=== PATIENT | female | born 1960 | race Caucasian/White ===

== ENCOUNTER 2018-06-20 07:52 | Day surgery (SDC) | payer OTHER ==
[~2018-06-20] VITALS: Ht 162.6 cm; Wt 58.1 kg
[~2018-06-20 07:52] MED LIST: ALPR.5; AMOX500 PO; ARIP10 PO; BUPR75 PO; CHLO10 PO; CHLO25 PO; CLON.5 PO; DISU250 PO; DIVA250EC; DIVA500EC; ESCI20 PO; ESTR1; FLUV50; HYDACE10B; HYDACE10B PO; HYDACE5 PO; HYDACE5325 PO; HYDGUAL120 PO; LAMO100; LAMO100 PO; LATUDA20 MG PO; LORA1 PO; LORA2 PO; METO50ER; MODA200 PO; MULVITA; OXYACE5T PO; Omeprazole20 M1 PO; RXLORA1 PO; TEMA15; TEMA30; TRAM50 PO; TRAZ100
--- NOTE | 2018-06-20 08:05 | NUR ---
Ambulatory in Day Surgery History, Chart, Medications and Allergies reviewed before start of procedure.Lungs clear T/O to Auscultation. Patient confirms NPO status and agrees with scheduled surgery. Patient States Post-Procedure ride home has been arranged.
--- NOTE | 2018-06-20 08:54 | NUR ---
06/20/18 0854 Constantino Bustamante PATIENT DETERMINED TO BE ASA APPROPRIATE FOR PROPOFOL SEDATION PRIOR TO START OF PROCEDURE BY . 3-LEAD EKG REVIEWED WITH PHYSICIAN PRIOR TO START OF PROCEDURE.PATIENT CONFIRMS NPO STATUS AND AGREES WITH SCHEDULED PROCEDURE.History, Chart, Medications and Allergies reviewed before start of procedure.MONITOR INTACT WITH CONTINUOUS PULSE OXIMETRY AND INTERMITTENT BP.O2 VIA N/C INTACT THROUGHOUT SEDATION/PROCEDURE.HURRICAINE SPRAY TO OROPHARYX.Bite Block Placed
--- NOTE | 2018-06-20 10:00 | NUR ---
Discharge instructions reviewed with patient. Patient verbalizes understanding. Copy given to patient to take home. Discharged via wheelchair to [place]. PT RIDE WILL BE HERE AT 1100. PT STATES SHE IS UNABLE TO STAY LAYING IN BED DUE TO BACK PAIN,HOPING NOW THAT SHE IS UP HER BACK WILL FEEL BETTER. GAVE TYLENOL PER ORDER/PT REQUESTED FROM DR KELLY.
== END 2018-06-20 22:45 | disposition home or self-care (01) ==
LOC: ORSCMMR 07:52 → ORD 09:00 → ORSCMMR 09:00
PROVIDERS: Internal Medicine Gastroenterology
PROC: 0DB68ZX Excision of Stomach, Via Natural or Artificial Opening Endoscopic, Diagnostic (ICD-10-PCS; principal; 2018-06-20 09:00)
PROC: 0DB98ZX Excision of Duodenum, Via Natural or Artificial Opening Endoscopic, Diagnostic (ICD-10-PCS; principal; 2018-06-20 09:00)
DX: Z87.11 Personal history of peptic ulcer disease (principal); K21.9 Gastro-esophageal reflux disease without esophagitis; K44.9 Diaphragmatic hernia without obstruction or gangrene; F31.9 Bipolar disorder, unspecified; Z79.899 Other long term (current) drug therapy
CPT/HCPCS: J2704; J7120

== ENCOUNTER 2020-05-09 12:30 | Emergency (ER) | payer OTHER ==
[~2020-05-09] VITALS: Ht 157.5 cm; Wt 56.7 kg
== END 2020-05-09 13:39 | disposition home or self-care (01) ==
LOC: ER 12:30
DX: S61.411A Laceration without foreign body of right hand, initial encounter (principal); Z23 Encounter for immunization; Z95.0 Presence of cardiac pacemaker; Z88.5 Allergy status to narcotic agent; Z79.899 Other long term (current) drug therapy; W25.XXXA Contact with sharp glass, initial encounter
CPT/HCPCS: 12001; 90471; 90714; 99282-25

== ENCOUNTER → 2021-01-13 | Outpatient (CLI) | payer OTHER ==
[2021-01-13 15:36] LABS: BASOPHILS ABSOLUTE AUTO 0.04 K/mm3 (0.00-0.23); BASOPHILS PERCENT AUTO 1 % (0-2); EOSINOPHILS ABSOLUTE AUTO 0.05 K/mm3 (0.00-0.68); EOSINOPHILS PERCENT AUTO 2 % (0-6); Hematocrit 36.6 % (33.0-51.0); IMMATURE GRAN PERCENT AUTO 0 % (0-1); LYMPHOCYTES ABSOLUTE AUTO 0.92 K/mm3 (0.84-5.20); LYMPHOCYTES PERCENT AUTO 27 % (21-46); MONOCYTES ABSOLUTE AUTO 0.31 K/mm3 (0.16-1.47); MONOCYTES PERCENT AUTO 9 % (4-13); Mean Corpuscular HGB Conc 35.5 g/dL (31.5-36.5); Mean Corpuscular Volume 104 fL (80-100); Mean Platelet Volume 10.5 fL (9.1-12.4); NEUTROPHILS ABSOLUTE AUTO 2.07 K/mm3 (1.96-9.15); NEUTROPHILS PERCENT AUTO 61 % (41-73); Platelet Count 367 K/mm3 (150-400); RDW Standard Deviation 46.5 fL (35.1-46.3); Red Blood Cell Count 3.51 M/mm3 (3.80-5.20); White Blood Cell Count 3.39 K/mm3 (4.00-11.30)
== END | disposition home or self-care (01) ==
LOC: LAB 08:30 → LAB SHORT 08:30
PROVIDERS: Physician Assistant
DX: D64.9 Anemia, unspecified (principal)
CPT/HCPCS: 85025

== ENCOUNTER → 2021-02-12 | Outpatient (CLI) | payer OTHER ==
[2021-02-12 13:38] LABS: Albumin/Globulin Ratio 1.4 (0.8-1.8); Bilirubin, Total 0.2 mg/dL (0.1-1.0); Bun/Creatinine Ratio 22.1 (12.0-20.0); Calcium, Blood 8.9 mg/dL (8.5-10.1); Creatinine, Blood 1.31 mg/dL (0.40-1.00); Globulin, Blood 2.9 g/dL (2.2-4.0); Potassium, Blood 4.4 mmol/L (3.5-5.5); Total Protein, Blood 6.9 g/dL (6.4-8.2)
[2021-02-12 13:42] LABS: BASOPHILS ABSOLUTE AUTO 0.04 K/mm3 (0.00-0.23); BASOPHILS PERCENT AUTO 1 % (0-2); EOSINOPHILS ABSOLUTE AUTO 0.04 K/mm3 (0.00-0.68); EOSINOPHILS PERCENT AUTO 1 % (0-6); Hemoglobin 11.8 g/dL (11.5-16.0); IMMATURE GRAN ABSOLUTE AUTO 0.01 K/mm3 (0.00-0.10); IMMATURE GRAN PERCENT AUTO 0 % (0-1); LYMPHOCYTES ABSOLUTE AUTO 0.89 K/mm3 (0.84-5.20); LYMPHOCYTES PERCENT AUTO 22 % (21-46); MONOCYTES PERCENT AUTO 8 % (4-13); Mean Corpuscular HGB 35.9 pg (26.0-34.0); Mean Corpuscular HGB Conc 34.7 g/dL (31.5-36.5); Mean Corpuscular Volume 103 fL (80-100); NEUTROPHILS ABSOLUTE AUTO 2.69 K/mm3 (1.96-9.15); NEUTROPHILS PERCENT AUTO 68 % (41-73); Platelet Count 309 K/mm3 (150-400); RDW Coefficient Variation 11.7 % (11.7-14.2); RDW Standard Deviation 44.7 fL (35.1-46.3); Red Blood Cell Count 3.29 M/mm3 (3.80-5.20); White Blood Cell Count 3.97 K/mm3 (4.00-11.30)
== END | disposition home or self-care (01) ==
LOC: LAB SHORT 12:07 → LAB 12:07
PROVIDERS: Physician Assistant
DX: D64.9 Anemia, unspecified (principal)
CPT/HCPCS: 80053; 85025

== ENCOUNTER → 2021-03-08 | Outpatient (CLI) | payer OTHER ==
[2021-03-08 14:21] LABS: Albumin, Blood 4.3 g/dL (3.4-5.0); Albumin/Globulin Ratio 1.5 (0.8-1.8); Bilirubin, Total 0.3 mg/dL (0.1-1.0); Bun/Creatinine Ratio 29.7 (12.0-20.0); Calcium, Blood 9.4 mg/dL (8.5-10.1); Creatinine, Blood 0.94 mg/dL (0.40-1.00); Globulin, Blood 2.8 g/dL (2.2-4.0); Percent Saturation 23.2 % (15.0-50.0); Potassium, Blood 4.5 mmol/L (3.5-5.5); Total Protein, Blood 7.1 g/dL (6.4-8.2)
== END | disposition home or self-care (01) ==
LOC: LAB SHORT 08:22
PROVIDERS: Physician Assistant
DX: D50.9 Iron deficiency anemia, unspecified (principal)
CPT/HCPCS: 80053; 82728; 83540; 83550

== ENCOUNTER → 2021-04-06 | Outpatient (CLI) | payer OTHER ==
[2021-04-06 22:01] LABS: Anion Gap 7 mmol/L (6-16); Blood Urea Nitrogen 14 mg/dL (8-24); Bun/Creatinine Ratio 26.6 (12.0-20.0); CO2, Blood 27 mmol/L (21-32); Calcium, Blood 8.9 mg/dL (8.5-10.1); Chloride, Blood 94 mmol/L (98-108); Creatinine, Blood 0.53 mg/dL (0.40-1.00); Glomerular Filtration Rate >60 (60-); Glucose, Blood 103 mg/dL (70-99); Potassium, Blood 4.7 mmol/L (3.5-5.5); Sodium, Blood 128 mmol/L (136-145)
== END ==
LOC: LAB SHORT 16:40
PROVIDERS: Nurse Practitioner
DX: E87.1 Hypo-osmolality and hyponatremia (principal)
CPT/HCPCS: 80048

== ENCOUNTER → 2022-02-22 | Outpatient (CLI) | payer OTHER ==
[2022-03-05 11:13] LABS: HPV 16 Negative (Negative); HPV 18 Negative (Negative); HPV OTHER HR TYPES Negative (Negative)
== END ==
LOC: LAB SHORT 09:04 → LAB 09:04
PROVIDERS: Family Medicine
DX: Z01.419 Encounter for gynecological examination (general) (routine) without abnormal findings (principal)
CPT/HCPCS: 87624; G0123

== ENCOUNTER → 2022-05-05 | Outpatient (CLI) | payer OTHER ==
[2022-05-05 17:15] LABS: BASOPHILS ABSOLUTE AUTO 0.04 K/mm3 (0.00-0.23); BASOPHILS PERCENT AUTO 1 % (0-2); EOSINOPHILS ABSOLUTE AUTO 0.02 K/mm3 (0.00-0.68); EOSINOPHILS PERCENT AUTO 1 % (0-6); Hematocrit 36.8 % (33.0-51.0); Hemoglobin 12.6 g/dL (11.5-16.0); IMMATURE GRAN ABSOLUTE AUTO 0.01 K/mm3 (0.00-0.10); IMMATURE GRAN PERCENT AUTO 0 % (0-1); LYMPHOCYTES ABSOLUTE AUTO 1.08 K/mm3 (0.84-5.20); LYMPHOCYTES PERCENT AUTO 28 % (21-46); MONOCYTES PERCENT AUTO 8 % (4-13); Mean Corpuscular HGB 35.5 pg (26.0-34.0); Mean Corpuscular HGB Conc 34.2 g/dL (31.5-36.5); Mean Corpuscular Volume 104 fL (80-100); NEUTROPHILS ABSOLUTE AUTO 2.36 K/mm3 (1.96-9.15); NEUTROPHILS PERCENT AUTO 62 % (41-73); Platelet Count 361 K/mm3 (150-400); RDW Coefficient Variation 11.9 % (11.7-14.2); Red Blood Cell Count 3.55 M/mm3 (3.80-5.20); White Blood Cell Count 3.81 K/mm3 (4.00-11.30)
[2022-05-06 10:05] LABS: Anion Gap 5 mmol/L (6-16); Blood Urea Nitrogen 39 mg/dL (8-24); Bun/Creatinine Ratio 50.7 (12.0-20.0); CHOL/HDL RATIO 2.4; CO2, Blood 25 mmol/L (21-32); Calcium, Blood 8.9 mg/dL (8.5-10.1); Chloride, Blood 102 mmol/L (98-108); Cholesterol 190 mg/dL (50-200); Creatinine, Blood 0.77 mg/dL (0.40-1.00); Glomerular Filtration Rate 87 (60-); Glucose, Blood 102 mg/dL (70-99); HDL Cholesterol 79 mg/dL (>39); LDL/HDL RATIO 1.3; Low Density Lipoprotein Chol 104 mg/dL (0-110); Potassium, Blood 4.7 mmol/L (3.5-5.5); Sodium, Blood 132 mmol/L (136-145); Triglycerides 35 mg/dL (30-160); Very Low Density Lipoprot Chol 7 mg/dL (6-32)
== END | disposition home or self-care (01) ==
LOC: LAB SHORT 14:21
PROVIDERS: Family Medicine
DX: I10 Essential (primary) hypertension (principal); D75.89 Other specified diseases of blood and blood-forming organs; Z79.899 Other long term (current) drug therapy
CPT/HCPCS: 80048; 80061; 82607; 82746; 85025

== ENCOUNTER 2023-12-27 10:58 | Day surgery (SDC) | payer OTHER ==
[~2023-12-27] VITALS: Ht 162.6 cm; Wt 55.7 kg
[2023-12-27] VITALS (16 sets, daily range): BP systolic 107–136; BP diastolic 71–86
[~2023-12-27 10:58] MED LIST changes: +LISI10 PO
[2023-12-27] MEDS ORDERED: CeFAZolin Sodium 2,000 MG in NS 100 ML IV SCH ×2 (11:20→23:00)
[2023-12-27] MEDS ORDERED: Lactated Ringer's 1,000 ML IV SCH ×2 (11:20→19:20)
[2023-12-27] MEDS ORDERED: Tranexamic Acid 100 ML IV SCH (11:20)
--- NOTE | 2023-12-27 12:29 | NUR ---
PRE-OP NOTE PT A&OX4, BREATHING RA, VSS, PT CALM, CHATTING C FAMILY MEMBER. PT C/O PAIN TO L SHOULDER. Ambulatory in Day Surgery Patient confirms NPO status and agrees with scheduled surgery. Pre-Op teaching done. Pt verbalizes understanding. Patient States Post-Procedure ride home has been arranged.
[2023-12-27] MEDS ORDERED: FentaNYL Citrate 50 MCG/ML 2 ML Injection ONE ×2 (14:23→18:08)
[2023-12-27] MEDS ORDERED: Bupivacaine 0.5% Inj 50 ML Vial ONE (14:24)
[2023-12-27] MEDS ORDERED: FentaNYL Citrate 50 MCG/ML 2 ML Injection IV ONE (14:25)
[2023-12-27] MEDS ORDERED: Dexamethasone Sod Phos 10 MG/ML 1ML VIAL ONE ×3 (14:29→16:05)
[2023-12-27] MEDS ORDERED: Phenylephrine HCl 100 MCG/ML-NS 10MLSYR (1MG/10ML) ONE (14:38)
[2023-12-27] MEDS ORDERED: Ondansetron HCl 2 MG / ML 2ML Vial ONE ×2 (14:38→16:11)
[2023-12-27] MEDS ORDERED: Rocuronium Bromide 10 MG/ML 5ML Injection IV ONE ×2 (14:38→15:06)
[2023-12-27] MEDS ORDERED: propofoL 20 ML IV ONE ×4 (14:39→17:34)
[2023-12-27] MEDS ORDERED: propofoL 100 ML IV ONE (15:04)
--- NOTE | 2023-12-27 15:05 | NUR ---
DSU BLOCK NOTE NERVE BLOCKS PERFORMED BY DR KASSIDY BRITTON ASSISTING IN SHOULDER INTERSCALENE AND BRACHIAL PLEXUS. TIME OUT PERFORMED AT 1448. PT O2 MONITORED DURING BLOCK AND PICTURES WERE TAKEN. PT DENTURES AND GLASSES TAKEN TO PACU.
[2023-12-27] MEDS ORDERED: Labetalol HCL 5 MG/ML 4ML Injection (Single Dose) ONE (15:34)
[2023-12-27] MEDS ORDERED: ePHEDrine Sulfate 50 MG/ML 1ML Injection ONE (16:02)
--- NOTE | 2023-12-27 16:10 | NUR ---
12/27/23 1610 Christina Middleton LEFT CERVICAL AND LEFT INTERSCALENE NERVE BLOCK PERFORMED BY IN THE PREOP SETTING PRIOR TO ARRIVING TO THE OR.
[2023-12-27] MEDS ORDERED: Sugammadex Sodium 200 MG/2ML SDV (100 MG/ML) ONE (16:11)
[2023-12-27] MEDS ORDERED: HYDROmorphone HCl/Pf 1MG SYR ONE (18:19)
[2023-12-27] MEDS ORDERED: DiphenhydrAMINE HCL 25 MG Cap PO PRN (19:15)
[2023-12-27] MEDS ORDERED: Promethazine HCl 25 MG Tab PO PRN (19:15)
[2023-12-27] MEDS ORDERED: Bisacodyl 10 MG Supp PR PRN (19:15)
[2023-12-27] MEDS ORDERED: Prochlorperazine Edisylate 10 mg Vial IV PRN (19:15)
[2023-12-27] MEDS ORDERED: Ondansetron HCl 2 MG / ML 2ML Vial IV PRN (19:20)
[2023-12-27] MEDS ORDERED: OxyCODONE HCL 5 MG TAB PO PRN ×2 (19:20)
[2023-12-27] MEDS ORDERED: Magnesium Hydroxide Conc 10 ML UDC PO PRN (19:20)
[2023-12-27] MEDS ORDERED: HYDROmorphone HCl/Pf 1MG SYR IV PRN (19:25)
[2023-12-27] MEDS ORDERED: FLU VACC TS2024-25(6MOS UP)/PF 45 MCG/0.5 ML SYRINGE IM ONE (19:25)
--- NOTE | 2023-12-27 19:39 | NUR ---
post op: report received from box turner. pt to unit at 1830. a/o, vss. sling in place and surgical site wnl. ice pack in place. pt rates pain 10/10, plan to medicate. pt given call light. report passed to noc jewel plunkett
[2023-12-27] MEDS ORDERED: Docusate Sodium 100 MG Cap PO SCH (21:00)
[2023-12-28] MEDS ORDERED: Ketorolac Tromethamine 15mg Vial IV SCH
[2023-12-28] MEDS ORDERED: Acetaminophen 500 MG Tab PO SCH
[2023-12-28 04:50] VITALS: BP 99/66
--- NOTE | 2023-12-28 05:32 | NUR ---
SHIFT SUMMARY NOC. PT POD 1 FOR LEFT TOTAL SHOULDER. PT A/OX4. AQUACEL C/D/I, BRUISING NOTED ON LUE BELOW AQUACEL ON ADMIT. BRUISING MARKED AND WITHIN MARGINS THIS SHIFT. POLAR PACK AND SLING IN PLACE. PT HAD NERVE BLOCK AND REPORTED NUMBNESS MOST OF THE NIGHT. LOCALIZED PAIN TO LEFT "ARMPIT". PT'S PAIN DIFFICULT TO CONTROL WITH REPORT OF 10/10 AT TIMES. OXY 10MG, DILAUDID, TORADOL, AND TYLENOL. PT'S PAIN AND SENSATION IMPROVED FROM START OF SHIFT. PT VOIDING, AMBULATES TO BR WITH SBA AND NWB ON LUE. BED IN LOWEST POSITION, CALL LIGHT IN REACH.
[2023-12-28] MEDS ORDERED: Dexamethasone Sodium Phosphate 4 MG/ML 1ML Vial IV SCH (07:20)
[2023-12-28 07:38] VITALS: BP 95/64
[2023-12-28 07:39] VITALS: BP 90/62
[2023-12-28] MEDS ORDERED: OXAYDO5 M1 PO (08:30)
[2023-12-28] MEDS ORDERED: Aspirin 81 MG Chew PO SCH (09:00)
[2023-12-28 11:29] VITALS: BP 93/67
--- NOTE | 2023-12-28 11:35 | NUR ---
DISCHARGE NOTE PT CLEARED TO DC HOME BY PT AND OT. PT TOLERATING REG DIET AND PO FLUIDS, VOIDING, IND/SBA IN ROOM. VSS, PT DENIES DIZZINESS. MEDICATED FOR PAIN UPON LEAVING W/ PRN AND SCHEDULED PAIN MEDS PER EMAR. PT DC'D HOME W/ BELONGINGS, AQUACEL DRESSINGS, AND DC INSTRUCTIONS TO PRIVATE RIDE HOME.
== END 2023-12-28 11:32 | disposition home or self-care (01) ==
LOC: ORSCMMR 10:58 → ORD 12:30 → ORSCMMR 12:30 → SURS 18:18 → ORSCMMR 12-28 11:32 → ORD 12-28 12:30
PROVIDERS: Orthopaedic Surgery Sports Medicine
PROC: 0RRK00Z Replacement of Left Shoulder Joint with Reverse Ball and Socket Synthetic Substitute, Open Approach (ICD-10-PCS; principal; 2023-12-27 13:30)
DX: M19.012 Primary osteoarthritis, left shoulder (principal); I10 Essential (primary) hypertension; I49.5 Sick sinus syndrome; Z95.0 Presence of cardiac pacemaker; F31.9 Bipolar disorder, unspecified; Z79.899 Other long term (current) drug therapy
CPT/HCPCS: 73030; 97162; 97165; 97530; 97535; A9270; C1713; C1776; J0690; J1100; J1171; J1885; J2371; J2405; J2704; J3010; J7120

== ENCOUNTER 2024-09-09 06:56 | Day surgery (SDC) | payer OTHER ==
[~2024-09-09] VITALS: Ht 162.6 cm; Wt 56.2 kg
[~2024-09-09 06:56] MED LIST changes: +FentaNYL Citrate 50 MCG/ML 2 ML Injection ONE; +Midazolam HCl 1MG / ML 2ML Vial ONE; +NS 500 ML IV ONE; +OXAYDO5 M1 PO
[2024-09-09] MEDS ORDERED: CeFAZolin Sodium 2,000 MG VIAL ONE (07:31)
[2024-09-09] MEDS ORDERED: NS 50 ML IV ONE (07:31)
[2024-09-09] MEDS ORDERED: IBUP200 PO (07:35)
[2024-09-09] MEDS ORDERED: NS 500 ML IV ONE (07:41)
[2024-09-09] MEDS ORDERED: Ketorolac Tromethamine 30mg Vial ONE (08:11)
[2024-09-09 08:30] VITALS: BP 100/69
== END 2024-09-09 08:54 | disposition home or self-care (01) ==
LOC: ORSCSDS 06:56
PROVIDERS: Orthopaedic Surgery
PROC: 01N54ZZ Release Median Nerve, Percutaneous Endoscopic Approach (ICD-10-PCS; principal; 2024-09-09 08:30)
DX: G56.01 Carpal tunnel syndrome, right upper limb (principal); I73.9 Peripheral vascular disease, unspecified; Z95.0 Presence of cardiac pacemaker; I12.9 Hypertensive chronic kidney disease with stage 1 through stage 4 chronic kidney disease, or unspecified chronic kidney disease; N18.9 Chronic kidney disease, unspecified; Z87.891 Personal history of nicotine dependence; Z79.899 Other long term (current) drug therapy
CPT/HCPCS: J0690; J1885; J2250; J2704; J3010; J7040